=== PATIENT | female | born 1990 | race American Indian/Alaskan Native ===

== ENCOUNTER 2017-08-07 14:50 | Emergency (ER) | payer SELFPAY ==
[2017-08-07 14:58] VITALS: BP 118/78
--- NOTE | 2017-08-07 15:18 | Emergency Department Report ---
Chief Complaint: Eye Problems Stated Complaint: RED WATERY EYES - HPI History of Present Illness: 27-year-old female presents with bilateral eye redness and watering. She wears contacts. - Exam Vital Signs: Vital Signs 08/07/17 14:54 Temperature 98.4 F Pulse Rate 89 Respiratory 16 Rate Blood Pressure 118/78 O2 Sat by Pulse 98 Oximetry MSE screening note: Focused history and physical exam performed. Due to findings the following was ordered: ED Disposition for MSE Condition: Stable
--- NOTE | 2017-08-07 15:58 | Emergency Department Report ---
[facility] Chief Complaint: Eye Problems Stated Complaint: RED WATERY EYES Time Seen by Provider: 08/07/17 15:51 Side: Bilateral Severity: moderate Symptoms: Yes Eye Redness, Yes Contact Lens Use (patient does wear contacts but does not have them in right now.), No Eye Itching, No Eye Pain, No Mucous Drainage, No Purulent Drainage, No Blurred Vision, No Preceding URI, No H/O Allergic Rhinitis, No Trauma, No Fever, No Headache Other History: 27-year-old female past medical history none presents with complaint of approximately 4-5 days of bilateral eye irritation and watery discharge. Patient denies any foreign body sensation denies any trauma to eyes denies anything in her eyes or spilling into her eyes. Patient denies fevers chills headache nausea vomiting. States she has had some photophobia. Patient is not wearing contact lenses at this time. ED Review of Systems ROS: Stated complaint: RED WATERY EYES Other details as noted in HPI Constitutional: denies: chills, fever Eyes: eye discharge. denies: eye pain, vision change ENT: denies: ear pain, throat pain Respiratory: denies: cough, shortness of breath, wheezing Cardiovascular: denies: chest pain, palpitations Endocrine: no symptoms reported Gastrointestinal: denies: abdominal pain, nausea, diarrhea Genitourinary: denies: urgency, dysuria, discharge Musculoskeletal: denies: back pain, joint swelling, arthralgia Skin: denies: rash, lesions Neurological: denies: headache, weakness, paresthesias Psychiatric: denies: anxiety, depression Hematological/Lymphatic: denies: easy bleeding, easy bruising ED Past Medical Hx - Past Medical History Previous Medical History?: No - Surgical History Past Surgical History?: No - Social History Smoking Status: Never Smoker Substance Use Type: Alcohol, Non Opiate Pain, Other - Medications Home Medications: Home Medications Medication Instructions Recorded Confirmed Last Taken Type Ciprofloxacin 0.3% (Nf) 1 drop OU QID #1 bottle 08/07/17 Unknown Rx [Ciprofloxacin OPTH] Ibuprofen [Motrin] 600 mg PO Q8H PRN #30 tablet 08/07/17 Unknown Rx Naphazoline HCl/Pheniramine 2 drops OP Q6H PRN #1 bottle 08/07/17 Unknown Rx [Naphcon-A Eye Drops] [facility] Exam - Exam General: Vital signs noted. No distress. Alert and acting appropriately. Eye Exam: Both Injection (bilateral conjunctival injection), Neither Chemosis, Neither Abnormal Pupil, Neither EOMI (extraocular movements intact bilaterally) , Neither Eye Foreign Body, Neither Lid Foreign Body, Neither Mucous Discharge, Neither Purulent Discharge, Neither Fluorescein Uptake, Neither Fluorescein Uptake (slit lamp), Neither Cell/Flare (slit lamp), Neither Corneal Edema, Neither Photophobia HEENT: No Nasal Congestion, No Pharyngeal Erythema Remainder of HEENT: Normal Lungs: Yes Clear Lung Sounds, Yes Good Air Exchange ED Course Vital Signs 08/07/17 14:54 Temperature 98.4 F Pulse Rate 89 Respiratory 16 Rate Blood Pressure 118/78 O2 Sat by Pulse 98 Oximetry ED Medical Decision Making - Medical Decision Making A/P: Conjunctivitis 1-fluoroquinolone drops. Will cover pseudomonas. 2-Motrin when necessary 3-Naphcon-A drops 4-follow-up with ophthalmology. Patient's visual acuity is intact bilaterally, 20/30 bilaterally 20/20 overall Critical care attestation.: If time is entered above; I have spent that time in minutes in the direct care of this critically ill patient, excluding procedure time. ED Disposition Clinical Impression: Conjunctivitis Qualifiers: Conjunctivitis type: acute Acute conjunctivitis type: bacterial Laterality: bilateral Qualified Code(s): H10.33 - Unspecified acute conjunctivitis, bilateral Disposition: TO HOME OR SELFCARE Is pt being admited?: No Does the pt Need Aspirin: No Condition: Stable Instructions: Conjunctivitis (ED) Prescriptions: Ciprofloxacin 0.3% (Nf) [Ciprofloxacin OPTH] 1 drop OU QID #1 bottle Ibuprofen [Motrin] 600 mg PO Q8H PRN #30 tablet PRN Reason: Pain Naphazoline HCl/Pheniramine [Naphcon-A Eye Drops] 2 drops OP Q6H PRN #1 bottle PRN Reason: Dry Eye(S) Referrals: ANKITA CASTELLON MD [Staff Physician] - 3-5 Days Forms: Work/School Release Form(ED) Time of Disposition: 15:59
== END 2017-08-07 16:07 | disposition home or self-care (01) ==
LOC: ED 14:50
DX: H10.33 Unspecified acute conjunctivitis, bilateral (principal)
CPT/HCPCS: 99283

== ENCOUNTER 2018-08-25 21:03 | Emergency (ER) | payer OTHER ==
--- NOTE | 2018-08-25 21:07 | Emergency Department Report ---
Blank Doc - Documentation Documentation: This is a 28-year-old female that presents with n/v. Denies any abdominal pain. This initial assessment diagnostic orders/clinical plan/treatment(s) is/are subject to change based on patient's health status, clinical progression and re- assessment by fellow clinical providers in the ED. Further treatment and workup at subsequent clinical providers discretion. Patient/guardians urged not to elope from ED s their condition may be serious if not clinically assessed and managed. Initial orders include: 1-Patient sent to [facility] for further evaluation and treatment 2- labs 3- UA
[2018-08-25 21:32] LABS: Basophils % (Auto) 0.3 % (0.0-1.8); Hematocrit 43.7 % (30.3-42.9); Hemoglobin 14.2 gm/dl (10.1-14.3); Lymphocytes # (Auto) 0.8 K/mm3 (1.2-5.4); Lymphocytes % (Auto) 6.1 % (13.4-35.0); Mean Corpuscular HGB Conc 32 % (30-34); Mean Corpuscular Volume 107 fl (79-97); Monocytes # (Auto) 0.5 K/mm3 (0.0-0.8); Monocytes % (Auto) 3.9 % (0.0-7.3); Platelet Count 248 K/mm3 (140-440); Red Blood Count 4.08 M/mm3 (3.65-5.03); Red Cell Distribution Width 15.5 % (13.2-15.2)
[2018-08-25 21:51] LABS: Alanine Aminotransferase 56 units/L (7-56); Albumin 4.7 g/dL (3.9-5); BUN/Creatinine Ratio 13; Blood Urea Nitrogen 8 mg/dL (7-17); Calcium 9.3 mg/dL (8.4-10.2); Hemolysis Index 13
[2018-08-25 22:33] VITALS: BP 116/77
[2018-08-25] MEDS ORDERED: NACL 0.9% 1000 ML 1,000 ML IV ONE ×2 (22:46→22:47)
[2018-08-25] MEDS ORDERED: ZOFRAN IV ONE (22:46)
[2018-08-25] MEDS ORDERED: PEPCID IV ONE (22:47)
[2018-08-25 23:12] LABS: Bacteria,Urine 1+ /HPF (Negative); Bilirubin,Urine NEG (Negative); Blood,Urine NEG (Negative); Color,Urine Yellow (Yellow); Hyaline Casts,Urine 4 /LPF; Urobilinogen,Urine < 2.0 mg/dL (<2.0)
--- NOTE | 2018-08-26 00:50 | Emergency Department Report ---
Vomiting/Diarrhea - [facility] Chief Complaint: Nausea/Vomiting/Diarrhea Stated Complaint: NASEA/EMESIS Time Seen by Provider: 08/25/18 21:05 Duration: Today Severity: severe Nausea/Vomiting Severity: Moderate Diarrhea Severity: None Pain Severity: None Symptoms: No Able to Tolerate Fluids, No Recent Unusual Foods, No Recent U ntreated Water ED Review of Systems ROS: Stated complaint: NASEA/EMESIS Other details as noted in HPI Comment: All other systems reviewed and negative ED Past Medical Hx - Past Medical History Previous Medical History?: No - Surgical History Past Surgical History?: No - Social History Smoking Status: Never Smoker Substance Use Type: None - Medications Home Medications: Home Medications Medication Instructions Recorded Confirmed Last Taken Type Ciprofloxacin 0.3% (Nf) 1 drop OU QID #1 bottle 08/07/17 Unknown Rx [Ciprofloxacin OPTH] Ibuprofen [Motrin] 600 mg PO Q8H PRN #30 tablet 08/07/17 Unknown Rx Naphazoline HCl/Pheniramine 2 drops OP Q6H PRN #1 bottle 08/07/17 Unknown Rx [Naphcon-A Eye Drops] Nitrofurantoin Monohyd/M-Cryst 100 mg PO BID #10 capsule 08/26/18 Unknown Rx [Macrobid 100 mg Capsule] Ondansetron [Zofran Odt] 4 mg PO Q8HR PRN #10 tab.rapdis 08/26/18 Unknown Rx Vomiting Diarrhea Exam - Exam General: Vital signs noted. No distress. Alert and acting appropriately. HEENT: No Pharyngeal Erythema, No Pharyngeal Exudates, No Moist Mucous Membranes, No Rhinorrhea, No Conjuctival Injection, No Frontal Tenderness, No Maxillary Tenderness Neck: No Adenopathy, No Rigidity Lungs: Yes Clear Lung Sounds, Yes Good Air Exchange, No Wheezes, No Stridor, No Cough, No Nasal Flaring, No Retractions, No Use of Accessory Muscles Heart exam: Regular: Yes, Murmur: No, Tachycardia: No Abdomen: Tenderness: No, Peritoneal Signs: No, Distention: No, Hyperactive Bowel sounds: No Skin exam: Rash: No, Edema: No, Normal turgor: Yes Neurologic: Alert and oriented, no deficits. Musculoskeletal: Unremarkable. ED Course Vital Signs 08/25/18 08/25/18 21:13 22:31 Temperature 98.4 F 98.6 F Pulse Rate 125 H 114 H Respiratory 18 18 Rate Blood Pressure 125/83 Blood Pressure 116/77 [Left] O2 Sat by Pulse 99 98 Oximetry ED Medical Decision Making - Lab Data Result diagrams: 08/25/18 21:16 08/25/18 21:16 Lab Results 08/25/18 08/25/18 08/25/18 Range/Units 21:16 21:16 21:16 WBC 14.0 H (4.5-11.0) K/mm3 RBC 4.08 (3.65-5.03) M/mm3 Hgb 14.2 (10.1-14.3) gm/dl Hct 43.7 H (30.3-42.9) % MCV 107 H (79-97) fl MCH 35 H (28-32) pg MCHC 32 (30-34) % RDW 15.5 H (13.2-15.2) % Plt Count 248 (140-440) K/mm3 Lymph % (Auto) 6.1 L (13.4-35.0) % [place] % (Auto) 3.9 (0.0-7.3) % Eos % (Auto) 0.0 (0.0-4.3) % Baso % (Auto) 0.3 (0.0-1.8) % Lymph # 0.8 L (1.2-5.4) K/mm3 [place] # 0.5 (0.0-0.8) K/mm3 Eos # 0.0 (0.0-0.4) K/mm3 Baso # 0.0 (0.0-0.1) K/mm3 Seg Neutrophils % 89.7 H (40.0-70.0) % Seg Neutrophils # 12.5 H (1.8-7.7) K/mm3 Sodium 141 (137-145) mmol/L Potassium 4.4 (3.6-5.0) mmol/L Chloride 96.0 L (98-107) mmol/L Carbon Dioxide 10 L (22-30) mmol/L Anion Gap 39 mmol/L BUN 8 (7-17) mg/dL Creatinine 0.6 L (0.7-1.2) mg/dL Estimated GFR > 60 ml/min BUN/Creatinine Ratio 13 % Glucose 47 L (65-100) mg/dL Calcium 9.3 (8.4-10.2) mg/dL Total Bilirubin 0.50 (0.1-1.2) mg/dL AST 92 H (5-40) units/L ALT 56 (7-56) units/L Alkaline Phosphatase 106 (35-129) units/L Total Protein 8.1 (6.3-8.2) g/dL Albumin 4.7 (3.9-5) g/dL Albumin/Globulin Ratio 1.4 % Lipase 10 L (13-60) units/L HCG, Qual Negative (Negative) Urine Color (Yellow) Urine Turbidity (Clear) Urine pH (5.0-7.0) Ur Specific [place] (1.003-1.030) Urine Protein (Negative) mg/dL Urine Glucose (UA) (Negative) mg/dL Urine Ketones (Negative) mg/dL Urine Blood (Negative) Urine Nitrite (Negative) Urine Bilirubin (Negative) Urine Urobilinogen (<2.0) mg/dL Ur Leukocyte Esterase (Negative) Urine WBC (Auto) (0.0-6.0) /HPF Urine RBC (Auto) (0.0-6.0) /HPF U Epithel Cells (Auto) (0-13.0) /HPF Urine Bacteria (Auto) (Negative) /HPF Hyaline Casts /LPF 08/25/18 Range/Units 22:50 WBC (4.5-11.0) K/mm3 RBC (3.65-5.03) M/mm3 Hgb (10.1-14.3) gm/dl Hct (30.3-42.9) % MCV (79-97) fl MCH (28-32) pg MCHC (30-34) % RDW (13.2-15.2) % Plt Count (140-440) K/mm3 Lymph % (Auto) (13.4-35.0) % [place] % (Auto) (0.0-7.3) % Eos % (Auto) (0.0-4.3) % Baso % (Auto) (0.0-1.8) % Lymph # (1.2-5.4) K/mm3 [place] # (0.0-0.8) K/mm3 Eos # (0.0-0.4) K/mm3 Baso # (0.0-0.1) K/mm3 Seg Neutrophils % (40.0-70.0) % Seg Neutrophils # (1.8-7.7) K/mm3 Sodium (137-145) mmol/L Potassium (3.6-5.0) mmol/L Chloride (98-107) mmol/L Carbon Dioxide (22-30) mmol/L Anion Gap mmol/L BUN (7-17) mg/dL Creatinine (0.7-1.2) mg/dL Estimated GFR ml/min BUN/Creatinine Ratio % Glucose (65-100) mg/dL Calcium (8.4-10.2) mg/dL Total Bilirubin (0.1-1.2) mg/dL AST (5-40) units/L ALT (7-56) units/L Alkaline Phosphatase (35-129) units/L Total Protein (6.3-8.2) g/dL Albumin (3.9-5) g/dL Albumin/Globulin Ratio % Lipase (13-60) units/L HCG, Qual (Negative) Urine Color Yellow (Yellow) Urine Turbidity Slightly-cloudy (Clear) Urine pH 5.0 (5.0-7.0) Ur Specific [place] 1.018 (1.003-1.030) Urine Protein 100 mg/dl (Negative) mg/dL Urine Glucose (UA) Neg (Negative) mg/dL Urine Ketones 80 (Negative) mg/dL Urine Blood Neg (Negative) Urine Nitrite Neg (Negative) Urine Bilirubin Neg (Negative) Urine Urobilinogen < 2.0 (<2.0) mg/dL Ur Leukocyte Esterase Mod (Negative) Urine WBC (Auto) 12.0 H (0.0-6.0) /HPF Urine RBC (Auto) 6.0 (0.0-6.0) /HPF U Epithel Cells (Auto) 4.0 (0-13.0) /HPF Urine Bacteria (Auto) 1+ (Negative) /HPF Hyaline Casts 4 /LPF - Medical Decision Making Patient was hydrated and her nausea was controlled with Zofran. Patient does have evidence of a mild urinary tract infection will be treated. Patient discharged home. Critical care attestation.: If time is entered above; I have spent that time in minutes in the direct care of this critically ill patient, excluding procedure time. ED Disposition Clinical Impression: Dehydration Gastritis Qualifiers: Gastritis type: unspecified gastritis Chronicity: acute Gastritis bleeding: presence of bleeding unspecified Qualified Code(s): K29.00 - Acute gastritis without bleeding Nausea & vomiting Qualifiers: Vomiting type: unspecified Vomiting Intractability: non-intractable Qualified Code(s): R11.2 - Nausea with vomiting, unspecified UTI (urinary tract infection) Qualifiers: Urinary tract infection type: site unspecified Hematuria presence: without hematuria Qualified Code(s): N39.0 - Urinary tract infection, site not specified Disposition: TO HOME OR SELFCARE Is pt being admited?: No Does the pt Need Aspirin: No Condition: Stable Instructions: Dehydration (ED), Urinary Tract Infection in Women (ED), Acute Nausea and Vomiting (ED) Referrals: LUIS SHARIF MD [Primary Care Provider] - 3-5 Days Time of Disposition: 00:49
== END 2018-08-26 01:10 | disposition home or self-care (01) ==
LOC: ED 21:03
DX: K29.00 Acute gastritis without bleeding (principal); N39.0 Urinary tract infection, site not specified; E86.0 Dehydration
CPT/HCPCS: 36415; 80053; 81001; 83690; 84703; 85025; 96361; 96374; 96375; 99283; J2405; J7030

== ENCOUNTER 2018-10-21 08:03 | Emergency (ER) | payer OTHER ==
[2018-10-21] MEDS ORDERED: NACL 0.9% 1000 ML 1,000 ML IV ONE (08:10)
[2018-10-21 08:29] VITALS: BP 131/96
[2018-10-21 08:40] LABS: Hematocrit 45.6 % (30.3-42.9); Hemoglobin 15.4 gm/dl (10.1-14.3); Mean Corpuscular HGB Conc 34 % (30-34); Mean Corpuscular Volume 105 fl (79-97); Platelet Count 211 K/mm3 (140-440); Red Blood Count 4.36 M/mm3 (3.65-5.03); Red Cell Distribution Width 15.1 % (13.2-15.2)
[2018-10-21 08:43] LABS: Basophils % (Auto) 0.4 % (0.0-1.8); Eosinophils % (Auto) 1.1 % (0.0-4.3); Lymphocytes # (Auto) 0.8 K/mm3 (1.2-5.4); Lymphocytes % (Auto) 18.5 % (13.4-35.0); Monocytes # (Auto) 0.5 K/mm3 (0.0-0.8); Monocytes % (Auto) 11.1 % (0.0-7.3)
[2018-10-21 08:55] LABS: Alanine Aminotransferase 89 units/L (7-56); Albumin 4.5 g/dL (3.9-5); BUN/Creatinine Ratio 13; Blood Urea Nitrogen 5 mg/dL (7-17); Calcium 9.2 mg/dL (8.4-10.2); Hemolysis Index 9
--- NOTE | 2018-10-21 10:37 | Emergency Department Report ---
HPI - General Chief Complaint: Abdominal Pain Time Seen by Provider: 10/21/18 10:21 - HPI HPI: 28-year-old female presents to the emergency department with a complaint of decreased appetite, weight loss, concerns for dehydration. She als o has some mild intermittent abdominal pain but says that she thinks it's due to hunger. Sometimes she is hungry but says that when she tries to eat she either gets nauseous and throws up or gets a bad taste in the back of her mouth and can't make herself swallow the food. She says that she has no problem drinking water or certain fluids. She denies any past medical history. She was here in August and says that she was being treated for a bladder infection at that time but denies any current dysuria, vaginal bleeding or discharge. she has not taken anything for her symptoms prior to arrival. No primary care physician. The patient says that she does drink alcohol on the weekends, but denies any illicit drug use. No recent travel or sick contacts at home. ED Past Medical Hx - Past Medical History Previous Medical History?: No - Surgical History Past Surgical History?: No - Social History Smoking Status: Never Smoker Substance Use Type: None - Medications Home Medications: Home Medications Medication Instructions Recorded Confirmed Last Taken Type Ciprofloxacin 0.3% (Nf) 1 drop OU QID #1 bottle 08/07/17 Unknown Rx [Ciprofloxacin OPTH] Ibuprofen [Motrin] 600 mg PO Q8H PRN #30 tablet 08/07/17 Unknown Rx Naphazoline HCl/Pheniramine 2 drops OP Q6H PRN #1 bottle 08/07/17 Unknown Rx [Naphcon-A Eye Drops] Nitrofurantoin Monohyd/M-Cryst 100 mg PO BID #10 capsule 08/26/18 Unknown Rx [Macrobid 100 mg Capsule] Ondansetron [Zofran Odt] 4 mg PO Q8HR PRN #10 tab.rapdis 08/26/18 Unknown Rx ED Review of Systems ROS: Stated complaint: LOSS OF APPETITE/DEHYDRATION Other details as noted in HPI Comment: All other systems reviewed and negative Constitutional: denies: chills, fever Eyes: denies: eye pain, vision change ENT: denies: ear pain, throat pain Respiratory: denies: cough, shortness of breath Cardiovascular: denies: chest pain, palpitations Endocrine: unexplained weight loss Gastrointestinal: abdominal pain. denies: diarrhea Genitourinary: denies: dysuria, discharge Musculoskeletal: denies: back pain, arthralgia Skin: denies: rash, lesions Neurological: denies: headache, weakness Physical Exam - Physical Exam Vital Signs: Vital Signs 10/21/18 08:28 Temperature 98.1 F Pulse Rate 104 H Respiratory 18 Rate Blood Pressure 131/96 O2 Sat by Pulse 100 Oximetry Physical Exam: GENERAL: The patient is well-developed well-nourished. HEENT: Normocephalic. Atraumatic. Patient has moist mucous membranes. EYES: Extraocular motions are intact. Pupils are equal and reactive to light bilaterally. NECK: Supple. Trachea is midline. CHEST/LUNGS: Clear to auscultation. There is no respiratory distress noted. HEART/CARDIOVASCULAR: Regular. There is no tachycardia. There is no obvious murmur. ABDOMEN: Abdomen is soft, nontender. Patient has normal bowel sounds. There is no abdominal distention. SKIN: Skin is warm and dry. NEURO: The patient is awake, alert, and oriented. The patient is cooperative. The patient has no focal neurologic deficits. The patient has normal speech. MUSCULOSKELETAL: There is no tenderness or deformity. There is no evidence of acute injury. ED Course Vital Signs 10/21/18 08:28 Temperature 98.1 F Pulse Rate 104 H Respiratory 18 Rate Blood Pressure 131/96 O2 Sat by Pulse 100 Oximetry ED Medical Decision Making - Lab Data Result diagrams: 10/21/18 08:29 10/21/18 08:29 - Medical Decision Making The patient is concerned about any further lab or imaging testing, or further evaluation of her elevated liver enzymes, secondary to a lack of insurance and concern for the cost. I had a lengthy discussion with her regarding the concern that I am unable to make sure that there is no dangerous intra-abdominal pathology or conditions without further evaluation, including an ultrasound. We discussed a differential that could include moderate to heavy alcohol use, gallstones, but also could include malignancy, cholecystitis, ch oledocholithiasis, among other conditions. She understands that by leaving without further evaluation, the patient could have worsening of her lab values, worsening of her symptoms, or potentially permanent organ damage or disability. She will still be given a referral for primary care and gastroenterology. She understands that she is welcome to come back at any time if she changes her mind about further evaluation, or with any other concerns or acute distress. Patient originally presents with complaint of decreased appetite, decreased oral intake of food, and some intermittent abdominal pains. Labs are mostly unremarkable except for an AST of 200 and an ALT of almost 100. No elevation in alkaline phosphatase or bilirubin. On examination she does not have any significant abdominal tenderness to palpation. The patient does admit to heavy drinking on the weekends but not daily drinker or alcohol dependence. As stated above, I recommended for an ultrasound to be done to evaluate the liver for the elevated liver enzymes. The patient is concerned about cost without insurance and would not agree to have this done today. Vital signs stable throughout her ED course. Since the patient is of sound mind and has normal decision-making capacity, the patient will be discharged home with some referrals but understands the risks of leaving without further evaluation and that she should return to the ER with any worsening of her symptoms or with any acute distress. - Differential Diagnosis hepatitis, cholelithiasis, choledocholithiasis, cholecystitis Critical Care Time: No Critical care attestation.: If time is entered above; I have spent that time in minutes in the direct care of this critically ill patient, excluding procedure time. ED Disposition Clinical Impression: Intermittent abdominal pain, Decreased appetite, Elevated liver enzymes Disposition: DC-07 LEFT AGAINST MED ADVICE Is pt being admited?: No Condition: Stable Instructions: Abdominal Pain (ED) Additional Instructions: Please follow up with a primary care physician. I am giving you a referral for [facility] regarding your intermittent abdominal pains and elevated liver enzymes. Return to the emergency department if you change your mind about further evaluation of these symptoms and abnormal labs, or with any acute distress. I recommend avoiding any alcohol use. Avoid Tylenol. Referrals: [facility] [Provider Group] - BILL [facility] [Outside] - BILL Forms: Work/School Release Form(ED) Time of Disposition: 10:37
== END 2018-10-21 10:52 | disposition left against medical advice (07) ==
LOC: ED 08:03 → EEVIPCON 08:03 → ED 10:52
DX: R10.9 Unspecified abdominal pain (principal); R63.0 Anorexia; R74.8 Abnormal levels of other serum enzymes
CPT/HCPCS: 36415; 80053; 84703; 85025; 99283

== ENCOUNTER 2018-10-22 13:08 | Inpatient (IN) | payer SELFPAY ==
[2018-10-22 13:43] LABS: Hematocrit 50.1 % (30.3-42.9); Hemoglobin 15.8 gm/dl (10.1-14.3); Mean Corpuscular HGB Conc 32 % (30-34); Platelet Count 221 K/mm3 (140-440); Red Blood Count 4.54 M/mm3 (3.65-5.03); Red Cell Distribution Width 15.8 % (13.2-15.2)
[2018-10-22 13:52] LABS: Mean Corpuscular Volume 110 fl (79-97)
[2018-10-22 14:00] LABS: Albumin 4.7 g/dL (3.9-5); Bilirubin,Direct 0.7 mg/dL (0-0.2); Calcium 9.9 mg/dL (8.4-10.2)
[2018-10-22] MEDS ORDERED: NACL 0.9% 1000 ML IV ONE (15:29)
[2018-10-22] MEDS ORDERED: PEPCID IV ONE (15:30)
[2018-10-22] MEDS ORDERED: ZOFRAN IV ONE (15:30)
[2018-10-22] MEDS: FLAGYL 500 MG/100 ML 500 MG/100 ML BAG IV SCH (17:11)
[2018-10-22 17:26] LABS: Basophils % (Manual) 0 % (0.0-1.8); Eosinophils % (Manual) 0 % (0.0-4.3); Total Cells Counted 100
[2018-10-22 17:27] LABS: Anisocytosis 1+; Macrocytosis 1+; Platelet Estimate Consistent w Auto
--- NOTE | 2018-10-22 17:30 | Ultrasound Report ---
PROCEDURE: US ABDOMEN LIMITED TECHNIQUE: Grayscale and color-flow imaging of the right upper quadrant was performed. HISTORY: RUQ/Epigastric pain COMPARISONS: None FINDINGS: Pancreas: Not well visualized due to artifact. Upper abdominal aorta: Normal caliber (1.7 cm). Right kidney: Measures 10.2 cm in the maximal craniocaudal dimension with cortical thickness measurem ent of 12 mm. There is no demonstration of hydronephrosis, renal calculi or renal mass. Liver: Demonstrates coarsened echotexture with increased echogenicity. This can be seen with hepatoce llular disease. Gallbladder: Moderately distended and without evidence of gallstones or gallbladder wall thickening ( 2 mm). There is no demonstration of pericholecystic fluid. Common bile duct: Normal caliber (3 mm). No free fluid is demonstrated in the right upper quadrant. IMPRESSION: 1. Coarsened echotexture of the liver with increased echogenicity. This can be seen with hepatocellul ar disease. Correlation with clinical history and physical exam will be helpful. If further imaging i s required, CT or MRI may be helpful. 2. The pancreas is not well visualized due to artifact. 3. Otherwise unremarkable right upper quadrant abdomen ultrasound. This document is electronically signed by Akua Rojas MD., October 22 2018 05:28:34 PM ET
--- NOTE | 2018-10-22 17:49 | Emergency Department Report ---
ED Abdominal Pain HPI - General Chief Complaint: Nausea/Vomiting/Diarrhea Stated Complaint: ABD PAIN/VOMITTING/NAUSEA/LIGHTHEADED Time Seen by Provider: 10/22/18 15:28 Source: patient Mode of arrival: Ambulatory Limitations: No Limitations - History of Present Illness Initial Comments: Patient is a 28-year-old [place]er female who is presenting with epigastric discomfort with nausea vomiting. Patient was here last night was seen. Patient has some mild elevation of her LFTs at that time with some nonreproducible abdominal discomfort. Patient was to have ultrasound performed yesterday however she stated she didn't have insurance and she declined ultrasound. Patient is abdominal discomfort was minimal and her white count was within normal limits and she was discharged home. Patient returned stating that she's had multiple episodes nausea vomiting with lightheadedness since. She states she still has some epigastric abdominal discomfort that is 8 out of 10 in severity. Severity scale (0 -10): 8 - Related Data Previous Rx's Medication Instructions Recorded Last Taken Type Ciprofloxacin 0.3% (Nf) 1 drop OU QID #1 bottle 08/07/17 Unknown Rx [Ciprofloxacin OPTH] Ibuprofen [Motrin] 600 mg PO Q8H PRN #30 tablet 08/07/17 Unknown Rx Naphazoline HCl/Pheniramine 2 drops OP Q6H PRN #1 bottle 08/07/17 Unknown Rx [Naphcon-A Eye Drops] Nitrofurantoin Monohyd/M-Cryst 100 mg PO BID #10 capsule 08/26/18 Unknown Rx [Macrobid 100 mg Capsule] Ondansetron [Zofran Odt] 4 mg PO Q8HR PRN #10 tab.rapdis 08/26/18 Unknown Rx Allergies Allergy/AdvReac Type Severity Reaction Status Date / Time No Known Allergies Allergy Verified 10/21/18 10:52 ED Review of Systems ROS: Stated complaint: ABD PAIN/VOMITTING/NAUSEA/LIGHTHEADED Other details as noted in HPI Comment: All other systems reviewed and negative ED Past Medical Hx - Past Medical History Previous Medical History?: No - Surgical History Past Surgical History?: No - Social History Smoking Status: Never Smoker Substance Use Type: Alcohol - Medications Home Medications: Home Medications Medication Instructions Recorded Confirmed Last Taken Type Ciprofloxacin 0.3% (Nf) 1 drop OU QID #1 bottle 08/07/17 Unknown Rx [Ciprofloxacin OPTH] Ibuprofen [Motrin] 600 mg PO Q8H PRN #30 tablet 08/07/17 Unknown Rx Naphazoline HCl/Pheniramine 2 drops OP Q6H PRN #1 bottle 08/07/17 Unknown Rx [Naphcon-A Eye Drops] Nitrofurantoin Monohyd/M-Cryst 100 mg PO BID #10 capsule 08/26/18 Unknown Rx [Macrobid 100 mg Capsule] Ondansetron [Zofran Odt] 4 mg PO Q8HR PRN #10 tab.rapdis 08/26/18 Unknown Rx ED Physical Exam - General Limitations: No Limitations General appearance: alert, in no apparent distress - Head Head exam: Present: atraumatic, normocephalic - Eye Eye exam: Present: normal appearance, PERRL, EOMI - ENT ENT exam: Present: mucous membranes dry - Neck Neck exam: Present: normal inspection - Respiratory Respiratory exam: Present: normal lung sounds bilaterally. Absent: respiratory distress, wheezes, rales, rhonchi - Cardiovascular Cardiovascular Exam: Present: normal rhythm, tachycardia, normal heart sounds. Absent: systolic murmur, diastolic murmur, rubs, gallop - GI/Abdominal GI/Abdominal exam: Present: soft, tenderness (epigastric), normal bowel sounds. Absent: distended, guarding, rebound, rigid - Extremities Exam Extremities exam: Present: normal inspection - Back Exam Back exam: Present: normal inspection - Neurological Exam Neurological exam: Present: alert, oriented X3 - Psychiatric Psychiatric exam: Present: normal affect, normal mood - Skin Skin exam: Present: warm, dry, intact, normal color. Absent: rash ED Course Vital Signs 10/22/18 13:12 Temperature 97.9 F Pulse Rate 138 H Respiratory 22 Rate Blood Pressure 109/66 O2 Sat by Pulse 98 Oximetry ED Medical Decision Making - Lab Data Result diagrams: 10/22/18 13:37 10/22/18 13:37 Laboratory Results - last 72 hr 10/22/18 10/22/18 10/22/18 13:37 13:37 15:59 WBC 21.3 H RBC 4.54 Hgb 15.8 H Hct 50.1 H MCV 110 H MCH 35 H MCHC 32 RDW 15.8 H Plt Count 221 Add Manual Diff Complete Total Counted 100 Seg Neutrophils % Spare Parts Clerk Seg Neuts % (Manual) 96.0 H Band Neutrophils % 0 Lymphocytes % (Manual) 2.0 L Reactive Lymphs % (Man) 0 Monocytes % (Manual) 2.0 Eosinophils % (Manual) 0 Basophils % (Manual) 0 Metamyelocytes % 0 Myelocytes % 0 Promyelocytes % 0 Blast Cells % 0 Nucleated RBC % Not Reportable Seg Neutrophils # Man 20.4 H Band Neutrophils # 0.0 Lymphocytes # (Manual) 0.4 L Abs React Lymphs (Man) 0.0 Monocytes # (Manual) 0.4 Eosinophils # (Manual) 0.0 Basophils # (Manual) 0.0 Metamyelocytes # 0.0 Myelocytes # 0.0 Promyelocytes # 0.0 Blast Cells # 0.0 WBC Morphology Not Reportable Hypersegmented Neuts Not Reportable Hyposegmented Neuts Not Reportable Hypogranular Neuts Not Reportable Smudge Cells Not Reportable Toxic Granulation Not Reportable Toxic Vacuolation Not Reportable Dohle Bodies Not Reportable Pelger-Huet Anomaly Not Reportable Aldair Rods Not Reportable Platelet Estimate Consistent w auto Clumped Platelets Not Reportable Plt Clumps, EDTA Not Reportable Large Platelets Not Reportable Giant Platelets Not Reportable Platelet Satelliting Not Reportable Plt Morphology Comment Not Reportable RBC Morphology Not Reportable Dimorphic RBCs Not Reportable Polychromasia Not Reportable Hypochromasia Not Reportable Poikilocytosis Not Reportable Anisocytosis 1+ Microcytosis Not Reportable Macrocytosis 1+ Spherocytes Not Reportable Pappenheimer Bodies Not Reportable Sickle Cells Not Reportable Target Cells Not Reportable Tear Drop Cells Not Reportable Ovalocytes Not Reportable Helmet Cells Not Reportable [place] Bodies Not Reportable [place] Rings Not Reportable Mari Cells Not Reportable Bite Cells Not Reportable Crenated Cell Not Reportable Elliptocytes Not Reportable Acanthocytes (Spur) Not Reportable Rouleaux Not Reportable Hemoglobin C Crystals Not Reportable Schistocytes Not Reportable Malaria parasites Not Reportable Samy Bodies Not Reportable Hem Pathologist Commnt No Sodium 146 H Potassium 4.6 Chloride 89.7 L Carbon Dioxide 10 L D Anion Gap 51 BUN 12 Creatinine 1.3 H D Estimated GFR 60 BUN/Creatinine Ratio 9 Glucose 51 L Lactic Acid 18.90 H* Calcium 9.9 Total Bilirubin 0.90 Direct Bilirubin 0.7 H Indirect Bilirubin 0.2 AST 569 H ALT 185 H Alkaline Phosphatase 160 H Total Protein 8.4 H Albumin 4.7 Albumin/Globulin Ratio 1.3 Lipase 11 L Plasma/Serum Alcohol 10/22/18 15:59 WBC RBC Hgb Hct MCV MCH MCHC RDW Plt Count Add Manual Diff Total Counted Seg Neutrophils % Seg Neuts % (Manual) Band Neutrophils % Lymphocytes % (Manual) Reactive Lymphs % (Man) Monocytes % (Manual) Eosinophils % (Manual) Basophils % (Manual) Metamyelocytes % Myelocytes % Promyelocytes % Blast Cells % Nucleated RBC % Seg Neutrophils # Man Band Neutrophils # Lymphocytes # (Manual) Abs React Lymphs (Man) Monocytes # (Manual) Eosinophils # (Manual) Basophils # (Manual) Metamyelocytes # Myelocytes # Promyelocytes # Blast Cells # WBC Morphology Hypersegmented Neuts Hyposegmented Neuts Hypogranular Neuts Smudge Cells Toxic Granulation Toxic Vacuolation Dohle Bodies Pelger-Huet Anomaly Aldair Rods Platelet Estimate Clumped Platelets Plt Clumps, EDTA Large Platelets Giant Platelets Platelet Satelliting Plt Morphology Comment RBC Morphology Dimorphic RBCs Polychromasia Hypochromasia Poikilocytosis Anisocytosis Microcytosis Macrocytosis Spherocytes Pappenheimer Bodies Sickle Cells Target Cells Tear Drop Cells Ovalocytes Helmet Cells [place]ma[place] Bodies [place] Rings Chalmers Cells Bite Cells Crenated Cell Elliptocytes Acanthocytes (Spur) Rouleaux Hemoglobin C Crystals Schistocytes Malaria parasites Samy Bodies Hem Pathologist Commnt Sodium Potassium Chloride Carbon Dioxide Anion Gap BUN Creatinine Estimated GFR BUN/Creatinine Ratio Glucose Lactic Acid Calcium Total Bilirubin Direct Bilirubin Indirect Bilirubin AST ALT Alkaline Phosphatase Total Protein Albumin Albumin/Globulin Ratio Lipase Plasma/Serum Alcohol < 0.01 The patient's white blood cell count increased to 21 from 4.6 yesterday. Patient's bicarbonate decreased to 10 from 26 yesterday. Patient's LFTs have risen as well. - Radiology Data [facility] [address] [place] [address] Ultrasound Report Signed Patient: RENETTA JIN MR#: [id number] : 1990 Acct:[id number] Age/Sex: 28 / F ADM Date: 10/22/18 Loc: ED Attending Dr: Ordering Physician: RICHARD KNIGHT MD Date of Service: 10/22/18 Procedure(s): US abdomen limited Accession Number(s): [id number] cc: RICHARD KNIGHT MD PROCEDURE: US ABDOMEN LIMITED TECHNIQUE: Grayscale and color-flow imaging of the right upper quadrant was performed. HISTORY: RUQ/Epigastric pain COMPARISONS: None FINDINGS: Pancreas: Not well visualized due to artifact. Upper abdominal aorta: Normal caliber (1.7 cm). Right kidney: Measures 10.2 cm in the maximal craniocaudal dimension with cortical thickness measurement of 12 mm. There is no demonstration of hydronephrosis, renal calculi or renal mass. Liver: Demonstrates coarsened echotexture with increased echogenicity. This can be seen with hepatocellular disease. Gallbladder: Moderately distended and without evidence of gallstones or gallbladder wall thickening (2 mm). There is no demonstration of pericholecystic fluid. Common bile duct: Normal caliber (3 mm). No free fluid is demonstrated in the right upper quadrant. IMPRESSION: 1. Coarsened echotexture of the liver with increased echogenicity. This can be seen with hepatocellular disease. Correlation with clinical history and physical exam will be helpful. If further imaging is required, CT or MRI may be helpful. 2. The pancreas is not well visualized due to artifact. 3. Otherwise unremarkable right upper quadrant abdomen ultrasound. This document is electronically signed by Akua Rojas MD., October 22 2018 05:28:34 PM ET Transcribed By: ED Dictated By: AKUA ROJAS MD Electronically Authenticated By: AKUA ROJAS MD Signed Date/Time: 10/22/181729 DD/ 06 TD/TT: 10/22/181706 - Medical Decision Making Patient is a 28-year-old female who's had dramatic change in her laboratory studies from her previous visit yesterday. Patient's clinical p resentation has changed as well. Patient now having nausea vomiting which she did not have initially. Patient was tachycardic at With elevated white blood cell count. Patient was started on sepsis protocol. Patient's blood pressure remained within normal limits. Patient doesn't have abdominal pain was started on cefepime and Flagyl. Patient was hydrated and given nausea relief which did improve her symptoms. Patient's ultrasound shows that she does have some inflammatory changes to the liver. Patient is admitted to the hospitalist service at this time. Hepatic panel in order as well. When asked about the patient's drinking yesterday she stated that she is a social drinker on weekends however she admitted to me that she drinks several drinks of hard liquor daily. Patient states she'll drink until she'll follow sleep. Patient's hepatitis is likely alcohol-induced however again a hepatitis panel has been ordered. Critical Care Time: Yes (30) Critical care attestation.: If time is entered above; I have spent that time in minutes in the direct care of this critically ill patient, excluding procedure time. ED Disposition Clinical Impression: Dehydration, Acute hepatitis Disposition: OP ADMIT IP TO THIS HOSP Is pt being admited?: Yes Does the pt Need Aspirin: No Condition: Stable Referrals: LUIS SHARIF MD [Primary Care Provider] - 3-5 Days
[2018-10-22] MEDS ORDERED: D50W (25GM) Syringe IV ONE ×2 (17:56→19:29)
[2018-10-22] MEDS ORDERED: NACL 0.9% 1000 ML 1,000 ML IV ONE (17:58)
[2018-10-22] MEDS ORDERED: DILAUDID IV PRN (18:43)
[2018-10-22] MEDS ORDERED: PERCOCET 5/325 PO PRN (18:43)
[2018-10-22] MEDS ORDERED: ZOFRAN IV PRN (18:43)
[2018-10-22] MEDS ORDERED: SODIUM CHLORIDE FLUSH SYRINGE 10 ML IV PRN (18:43)
[2018-10-22] MEDS ORDERED: TYLENOL PO PRN (18:43)
--- NOTE | 2018-10-22 18:43 | History and Physical Report ---
History of Present Illness Date of examination: 10/22/18 Date of admission: 10/22/2018 Chief complaint: Abdominal pain nausea vomiting since last night History of present illness: 30-year-old -[place] female with no significant past medical history comes in for abdominal pain since yesterday. Patient was in the emergency room last night--- was evaluated and was sent home. Patient refused abdominal ultrasound.. After going home patient started having persistent nausea vomiting since 1 AM. Not able to hold anything. No diarrhea. Abdominal pain is about 6-7 on a scale of 1-10. Sharp in nature and intermittent. Patient feels weak and dehydrated secondary to wanting. No fever or chills. Patient drinks about 2 to 3 shots of tequila every day for the past 5 years. Patient wants to quit alcohol but unable to do. Patient feels that this is a precipitating factor and may stop alcohol from now on. Past Medical History Previous Medical History?: No Surgical History Past Surgical History?: No Social History Smoking Status: Never Smoker Substance Use Type: Alcohol--tequila 2-3 shots every day for the past 5 years Family history Htn Medications Home Medications: Home Medications Medication Instructions Recorded Confirmed Last Taken Type Ciprofloxacin 0.3% (Nf) 1 drop OU QID #1 bottle 08/07/17 Unknown Rx [Ciprofloxacin OPTH] Ibuprofen [Motrin] 600 mg PO Q8H PRN #30 tablet 08/07/17 Unknown Rx Naphazoline HCl/Pheniramine 2 drops OP Q6H PRN #1 bottle 08/07/17 Unknown Rx [Naphcon-A Eye Drops] Nitrofurantoin Monohyd/M-Cryst 100 mg PO BID #10 capsule 08/26/18 Unknown Rx [Macrobid 100 mg Capsule] Ondansetron [Zofran Odt] 4 mg PO Q8HR PRN #10 tab.rapdis 08/26/18 Unknown Rx Review of Systems ROS: Stated complaint: ABD PAIN/VOMITTING/NAUSEA/LIGHTHEADED Other details as noted in HPI Feels lightheaded and then dehydrated. Comment: All other systems reviewed and negative Medications and Allergies Allergies Allergy/AdvReac Type Severity Reaction Status Date / Time No Known Allergies Allergy Verified 10/21/18 10:52 Home Medications Medication Instructions Recorded Confirmed Last Taken Type No Known Home Medications [No 10/22/18 10/22/18 Unknown History Reported Home Medications] Active Meds: Active Medications Cefepime HCl (Maxipime/Ns 2 Gm/100 Ml) 2 gm in 100 mls @ 200 mls/hr IV Q8HR PARI; Protocol Metronidazole (Flagyl 500 Mg/100 Ml) 500 mg in 100 mls @ 100 mls/hr IV Q8HR PARI; Protocol Last Admin: 10/22/18 17:11 Dose: 100 mls/hr Documented by: Sodium Chloride (Nacl 0.9% 1000 Ml) 1,000 mls @ 999 mls/hr IV BOLUS ONE Stop: 10/22/18 18:58 Last Admin: 10/22/18 18:40 Dose: 999 mls/hr Documented by: Sodium Chloride (Nacl 0.9% 1000 Ml) 1,000 mls @ 100 mls/hr IV DIRECT PARI Exam - Physical Exam Narrative exam: Patient lying in bed comfortably - Constitutional Vitals: Temp Pulse Resp BP Pulse Ox 97.9 F 148 H 33 H 107/68 97 10/22/18 13:12 10/22/18 16:00 10/22/18 16:00 10/22/18 16:00 10/22/18 16:00 General appearance: Present: mild distress, well-nourished - EENT Eyes: Present: PERRL ENT: hearing intact, clear oral mucosa - Neck Neck: Present: supple, normal ROM - Respiratory Respiratory effort: normal Respiratory: bilateral: CTA - Cardiovascular Heart rate: 138 Rhythm: regular Heart Sounds: Present: S1 & S2. Absent: rub, click - Extremities Extremities: no ischemia, pulses intact, pulses symmetrical, No edema Peripheral Pulses: within normal limits - Abdominal General gastrointestinal: Present: soft, non-tender, non-distended, normal bowel sounds Female genitourinary: Present: normal - Integumentary Integumentary: Present: clear, warm, dry - Musculoskeletal Musculoskeletal: gait normal, strength equal bilaterally - Psychiatric Psychiatric: appropriate mood/affect, intact judgment & insight - Neurologic Neurologic: CNII-XII intact, moves all extremities - Allied Health Allied health notes reviewed: nursing, case management Results - Labs CBC & Chem 7: 10/22/18 13:37 10/22/18 13:37 Labs: Laboratory Last Values WBC 21.3 K/mm3 (4.5-11.0) H 10/22/18 13:37 RBC 4.54 M/mm3 (3.65-5.03) 10/22/18 13:37 Hgb 15.8 gm/dl (10.1-14.3) H 10/22/18 13:37 Hct 50.1 % (30.3-42.9) H 10/22/18 13:37 MCV 110 fl (79-97) H 10/22/18 13:37 MCH 35 pg (28-32) H 10/22/18 13:37 MCHC 32 % (30-34) 10/22/18 13:37 RDW 15.8 % (13.2-15.2) H 10/22/18 13:37 Plt Count 221 K/mm3 (140-440) 10/22/18 13:37 Add Manual Diff Complete 10/22/18 13:37 Total Counted 100 10/22/18 13:37 Seg Neutrophils % Bagel Maker 10/22/18 13:37 Seg Neuts % (Manual) 96.0 % (40.0-70.0) H 10/22/18 13:37 Band Neutrophils % 0 % 10/22/18 13:37 Lymphocytes % (Manual) 2.0 % (13.4-35.0) L 10/22/18 13:37 Reactive Lymphs % (Man) 0 % 10/22/18 13:37 Monocytes % (Manual) 2.0 % (0.0-7.3) 10/22/18 13:37 Eosinophils % (Manual) 0 % (0.0-4.3) 10/22/18 13:37 Basophils % (Manual) 0 % (0.0-1.8) 10/22/18 13:37 Metamyelocytes % 0 % 10/22/18 13:37 Myelocytes % 0 % 10/22/18 13:37 Promyelocytes % 0 % 10/22/18 13:37 Blast Cells % 0 % 10/22/18 13:37 Nucleated RBC % Not Reportable 10/22/18 13:37 Seg Neutrophils # Man 20.4 K/mm3 (1.8-7.7) H 10/22/18 13:37 Band Neutrophils # 0.0 K/mm3 10/22/18 13:37 Lymphocytes # (Manual) 0.4 K/mm3 (1.2-5.4) L 10/22/18 13:37 Abs React Lymphs (Man) 0.0 K/mm3 10/22/18 13:37 Monocytes # (Manual) 0.4 K/mm3 (0.0-0.8) 10/22/18 13:37 Eosinophils # (Manual) 0.0 K/mm3 (0.0-0.4) 10/22/18 13:37 Basophils # (Manual) 0.0 K/mm3 (0.0-0.1) 10/22/18 13:37 Metamyelocytes # 0.0 K/mm3 10/22/18 13:37 Myelocytes # 0.0 K/mm3 10/22/18 13:37 Promyelocytes # 0.0 K/mm3 10/22/18 13:37 Blast Cells # 0.0 K/mm3 10/22/18 13:37 WBC Morphology Not Reportable 10/22/18 13:37 Hypersegmented Neuts Not Reportable 10/22/18 13:37 Hyposegmented Neuts Not Reportable 10/22/18 13:37 Hypogranular Neuts Not Reportable 10/22/18 13:37 Smudge Cells Not Reportable 10/22/18 13:37 Toxic Granulation Not Reportable 10/22/18 13:37 Toxic Vacuolation Not Reportable 10/22/18 13:37 Dohle Bodies Not Reportable 10/22/18 13:37 Pelger-Huet Anomaly Not Reportable 10/22/18 13:37 Aldair Rods Not Reportable 10/22/18 13:37 Platelet Estimate Consistent w auto 10/22/18 13:37 Clumped Platelets Not Reportable 10/22/18 13:37 Plt Clumps, EDTA Not Reportable 10/22/18 13:37 Large Platelets Not Reportable 10/22/18 13:37 Giant Platelets Not Reportable 10/22/18 13:37 Platelet Satelliting Not Reportable 10/22/18 13:37 Plt Morphology Comment Not Reportable 10/22/18 13:37 RBC Morphology Not Reportable 10/22/18 13:37 Dimorphic RBCs Not Reportable 10/22/18 13:37 Polychromasia Not Reportable 10/22/18 13:37 Hypochromasia Not Reportable 10/22/18 13:37 Poikilocytosis Not Reportable 10/22/18 13:37 Anisocytosis 1+ 10/22/18 13:37 Microcytosis Not Reportable 10/22/18 13:37 Macrocytosis 1+ 10/22/18 13:37 Spherocytes Not Reportable 10/22/18 13:37 Pappenheimer Bodies Not Reportable 10/22/18 13:37 Sickle Cells Not Reportable 10/22/18 13:37 Target Cells Not Reportable 10/22/18 13:37 Tear Drop Cells Not Reportable 10/22/18 13:37 Ovalocytes Not Reportable 10/22/18 13:37 Helmet Cells Not Reportable 10/22/18 13:37 Ledezma-[place] Bodies Not Reportable 10/22/18 13:37 [place] Rings Not Reportable 10/22/18 13:37 Mari Cells Not Reportable 10/22/18 13:37 Bite Cells Not Reportable 10/22/18 13:37 Crenated Cell Not Reportable 10/22/18 13:37 Elliptocytes Not Reportable 10/22/18 13:37 Acanthocytes (Spur) Not Reportable 10/22/18 13:37 Rouleaux Not Reportable 10/22/18 13:37 Hemoglobin C Crystals Not Reportable 10/22/18 13:37 Schistocytes Not Reportable 10/22/18 13:37 Malaria parasites Not Reportable 10/22/18 13:37 Samy Bodies Not Reportable 10/22/18 13:37 Hem Pathologist Commnt No 10/22/18 13:37 Sodium 146 mmol/L (137-145) H 10/22/18 13:37 Potassium 4.6 mmol/L (3.6-5.0) 10/22/18 13:37 Chloride 89.7 mmol/L (98-107) L 10/22/18 13:37 Carbon Dioxide 10 mmol/L (22-30) L D 10/22/18 13:37 Anion Gap 51 mmol/L 10/22/18 13:37 BUN 12 mg/dL (7-17) 10/22/18 13:37 Creatinine 1.3 mg/dL (0.7-1.2) H D 10/22/18 13:37 Estimated GFR 60 ml/min 10/22/18 13:37 BUN/Creatinine Ratio 9 % 10/22/18 13:37 Glucose 51 mg/dL (65-100) L 10/22/18 13:37 Lactic Acid 18.90 mmol/L (0.7-2.0) H* 10/22/18 15:59 Calcium 9.9 mg/dL (8.4-10.2) 10/22/18 13:37 Total Bilirubin 0.90 mg/dL (0.1-1.2) 10/22/18 13:37 Direct Bilirubin 0.7 mg/dL (0-0.2) H 10/22/18 13:37 Indirect Bilirubin 0.2 mg/dL 10/22/18 13:37 AST 569 units/L (5-40) H 10/22/18 13:37 ALT 185 units/L (7-56) H 10/22/18 13:37 Alkaline Phosphatase 160 units/L (35-129) H 10/22/18 13:37 Total Protein 8.4 g/dL (6.3-8.2) H 10/22/18 13:37 Albumin 4.7 g/dL (3.9-5) 10/22/18 13:37 Albumin/Globulin Ratio 1.3 % 10/22/18 13:37 Lipase 11 units/L (13-60) L 10/22/18 13:37 Plasma/Serum Alcohol < 0.01 % (0-0.07) 10/22/18 15:59 Short CBC 10/22/18 Range/Units 13:37 WBC 21.3 H (4.5-11.0) K/mm3 Hgb 15.8 H (10.1-14.3) gm/dl Hct 50.1 H (30.3-42.9) % Plt Count 221 (140-440) K/mm3 BMP 10/22/18 13:37 Sodium 146 H Potassium 4.6 Chloride 89.7 L Carbon Dioxide 10 L D BUN 12 Creatinine 1.3 H D Glucose 51 L Calcium 9.9 Liver Function 10/22/18 Range/Units 13:37 Total Bilirubin 0.90 (0.1-1.2) mg/dL Direct Bilirubin 0.7 H (0-0.2) mg/dL AST 569 H (5-40) units/L ALT 185 H (7-56) units/L Alkaline Phosphatase 160 H (35-129) units/L Albumin 4.7 (3.9-5) g/dL - Imaging and Cardiology Imaging and Cardiology: Abdominal ultrasound IMPRESSION: 1. Coarsened echotexture of the liver with increased echogenicity. This can be seen with hepatocellular disease. Correlation with clinical history and physical exam will be helpful. If further imaging is required, CT or MRI may be helpful. 2. The pancreas is not well visualized due to artifact. 3. Otherwise unremarkable right upper quadrant abdomen ultrasound. This document is electronically signed by Akua Rojas MD., October 22 2018 05:28:34 PM ET Assessment and Plan Advance Directives: Yes (full code) VTE prophylaxis?: Chemical Plan of care discussed with patient/family: Yes - Patient Problems (1) SIRS (systemic inflammatory response syndrome) Current Visit: Yes Status: Acute Plan to address problem: Secondary to acute hepatitis IV ceftriaxone initiated IV fluids Serial liver enzymes (2) Acute hepatitis Current Visit: Yes Status: Acute Plan to address problem: Patient has alcoholic hepatitis. Patient's AST and ALT were 92 and 56 on 08/25/2018. AST and ALT are increased to 202 and 89 respectively yesterday. Today AST and ALT are 569 and 185 lipase was 11. Severe hepatitis secondary to alcohol poisoning. Patient may be underestimating the amount of alcohol she takes. Patient needs to be off alcohol. Hepatitis profile to be checked to make sure there is no hepatitis A, B, and C. GI consult requested IV fluids for now CIWA protocol initiated.. (3) Elevated lactic acid level Current Visit: Yes Status: Acute Plan to address problem: Secondary to persistent vomiting causing alcoholic ketoacidosis IV fluids for now Empiric antibiotics in the form of Rocephin (4) Leukocytosis Current Visit: Yes Status: Acute Plan to address problem: Probably demargination No source of infection Antibiotics initiated in the form of Rocephin No fever Urine pending (5) Dehydration Current Visit: Yes Status: Acute Plan to address problem: Patient severely dehydrated as manifested by high sodium levels h emoconcentration and increased creatinine levels. IV fluids for now (6) Elevated liver enzymes Current Visit: No Status: Acute Plan to address problem: Secondary to acute hepatitis Liver enzymes progressively increasing over the last 2 months from 92 to 202 to 569 AST ALT 56 ---89---185 (7) Acute hypernatremia Current Visit: Yes Status: Acute Plan to address problem: D5 half-normal saline for now Secondary to persistent vomiting (8) KISHA (acute kidney injury) Current Visit: Yes Status: Acute Plan to address problem: IV fluids for now (9) Metabolic acidosis Current Visit: Yes Status: Acute Plan to address problem: Secondary to persistent vomiting and alcoholic ketoacidosis (10) EtOH dependence Current Visit: Yes Status: Chronic Qualifiers: Substance use status: in withdrawal Plan to address problem: Patient counseled and initiated on CIWA protocol (11) DVT prophylaxis Current Visit: Yes Status: Acute Plan to address problem: On Lovenox and GI prophylaxis
[2018-10-22] MEDS ORDERED: LIBRIUM PO PRN ×2 (18:49)
[2018-10-22] MEDS ORDERED: ATIVAN IV PRN ×2 (18:49)
[2018-10-22] MEDS: MAXIPIME/NS 2 GM/100 ML 2 GM/100 ML BAG IV SCH ×2 (19:00→21:43)
[2018-10-22 19:09] LABS: Hepatitis B Surface Antigen Non-Reactive (Negative); Hepatitis C Virus Antibody Non-Reactive (NonReactive)
[2018-10-22] MEDS ORDERED: XYLOCAINE 1% MPF 5 mL INFILTRATI ONE (19:33)
[2018-10-22] MEDS ORDERED: PERCOCET 5/325 ONE (19:45)
[2018-10-22] MEDS ORDERED: ROCEPHIN IM SCH (19:45)
[2018-10-22] MEDS: NACL 0.9% 1000 ML 1,000 ML IV SCH (21:29)
[2018-10-22] MEDS: PROTONIX IV SCH (21:35)
[2018-10-22] MEDS: SODIUM CHLORIDE FLUSH SYRINGE 10 ML IV SCH (21:36)
[2018-10-23] MEDS: FLAGYL 500 MG/100 ML 500 MG/100 ML BAG IV SCH ×4 (01:34→22:30)
[2018-10-23 04:58] LABS: Basophils % (Auto) 0.2 % (0.0-1.8); Hemoglobin 12.8 gm/dl (10.1-14.3); Lymphocytes % (Auto) 10.3 % (13.4-35.0); Mean Corpuscular HGB Conc 34 % (30-34); Mean Corpuscular Volume 105 fl (79-97); Monocytes # (Auto) 0.7 K/mm3 (0.0-0.8); Platelet Count 149 K/mm3 (140-440); Red Blood Count 3.61 M/mm3 (3.65-5.03); Red Cell Distribution Width 14.5 % (13.2-15.2)
[2018-10-23 05:00] LABS: INR 1.17 (0.87-1.13); Partial Thromboplastin Time 26.5 Sec. (24.2-36.6)
[2018-10-23 05:05] LABS: Alanine Aminotransferase 117 units/L (7-56); Albumin 3.4 g/dL (3.9-5); BUN/Creatinine Ratio 12; Blood Urea Nitrogen 13 mg/dL (7-17); Calcium 7.7 mg/dL (8.4-10.2); Hemolysis Index 8
[2018-10-23] MEDS: MAXIPIME/NS 2 GM/100 ML 2 GM/100 ML BAG IV SCH ×3 (05:49→22:30)
[2018-10-23] MEDS: NACL 0.9% 1000 ML 1,000 ML IV SCH ×2 (06:08→18:20)
[2018-10-23 07:02] LABS: Bilirubin,Urine NEG (Negative); Blood,Urine NEG (Negative); Color,Urine Amber (Yellow); Mucus,Urine 2+ /HPF
[2018-10-23] MEDS: PROTONIX IV SCH ×2 (09:29→22:31)
[2018-10-23] MEDS: SODIUM CHLORIDE FLUSH SYRINGE 10 ML IV SCH ×2 (09:31→22:31)
--- NOTE | 2018-10-23 10:26 | Gastroenterology Consultation ---
History of Present Illness - Reason for Consult Consult date: 10/23/18 acute hepatitis Requesting physician: SELENA CURRY - History of Present Illness Patient is a 30 y/o female with no significant PMH who presented to ED with c/o upper abdominal pain with associated N/V. Upon admission, LFTs were found to be elevated to which GI has been consulted for acute hepatitis. This morning patient was sitting up in bed w/o acute distress. She reports feeling better with prior abdominal pain described as generalized cramping now improved and N/V resolved. Tolerating liquids. Denies fever, CP, SOB, wt loss, jaundice, signs of bleeding, or LGI symptoms such as diarrhea or constipation. No prior hx of liver disease or Fhx of liver disease. No IV drug use or new medications. Admits to daily alcohol use (~2-3 shots of liquor) over the past few years but states that recently her daily intake of alcohol has significantly increased after the passing of her grandmother and uncle. Past History Past Medical History: No medical history Past Surgical History: No surgical history Social history: alcohol abuse. denies: smoking Family history: hypertension Medications and Allergies Allergies Allergy/AdvReac Type Severity Reaction Status Date / Time No Known Allergies Allergy Verified 10/21/18 10:52 Home Medications Medication Instructions Recorded Confirmed Last Taken Type No Known Home Medications [No 10/22/18 10/22/18 Unknown History Reported Home Medications] Active Meds: Active Medications Acetaminophen (Tylenol) 650 mg PO Q4H PRN PRN Reason: Pain MILD(1-3)/Fever >100.5/FRANCO Chlordiazepoxide HCl (Librium) 50 mg PO Q1H PRN PRN Reason: CIWA-Ar 8-15 Chlordiazepoxide HCl (Librium) 100 mg PO Q1H PRN PRN Reason: CIWA-Ar 16-25 Hydromorphone HCl (Dilaudid) 0.5 mg IV Q3H PRN PRN Reason: Pain , Severe (7-10) Cefepime HCl (Maxipime/Ns 2 Gm/100 Ml) 2 gm in 100 mls @ 200 mls/hr IV Q8HR [facility]; Protocol Last Admin: 10/23/18 05:49 Dose: 200 mls/hr Documented by: Metronidazole (Flagyl 500 Mg/100 Ml) 500 mg in 100 mls @ 100 mls/hr IV Q8HR [facility]; Protocol Last Admin: 10/23/18 06:35 Dose: 100 mls/hr Documented by: Sodium Chloride (Nacl 0.9% 1000 Ml) 1,000 mls @ 100 mls/hr IV DIRECT [facility] Stop: 10/24/18 23:59 Last Admin: 10/23/18 06:08 Dose: 100 mls/hr Documented by: Lorazepam (Ativan) 2 mg IV Q1H PRN PRN Reason: CIWA-Ar 8-15 Lorazepam (Ativan) 4 mg IV Q1H PRN PRN Reason: CIWA-Ar 16-25 Ondansetron HCl (Zofran) 4 mg IV Q8H PRN PRN Reason: Nausea And Vomiting Oxycodone/Acetaminophen (Percocet 5/325) 1 tab PO Q6H PRN PRN Reason: Pain, Moderate (4-6) Last Admin: 10/22/18 19:45 Dose: 1 tab Documented by: Pantoprazole Sodium (Protonix) 40 mg IV BID [facility] Last Admin: 10/23/18 09:29 Dose: 40 mg Documented by: Sodium Chloride (Sodium Chloride Flush Syringe 10 Ml) 10 ml IV BID [facility] Last Admin: 10/23/18 09:31 Dose: Not Given Documented by: Sodium Chloride (Sodium Chloride Flush Syringe 10 Ml) 10 ml IV PRN PRN PRN Reason: LINE FLUSH medications reviewed/updated as required Review of Systems - Review of Systems All systems: negative Gastrointestinal: abdominal pain, nausea, vomiting Exam - Constitutional Vital Signs: Temp Pulse Resp BP Pulse Ox 97.7 F 81 16 105/73 98 10/23/18 05:14 10/23/18 05:14 10/23/18 05:14 10/23/18 05:14 10/23/18 05:14 General appearance: no acute distress - EENT Eyes: PERRL, EOM intact ENT: hearing intact - Respiratory Respiratory: bilateral: CTA - Cardiovascular Rhythm: regular - Gastrointestinal General gastrointestinal: Present: soft, non-tender, non-distended, normal bowel sounds - Neurologic Neurological: alert and oriented x3 - Labs CBC & Chem 7: 10/23/18 04:08 10/23/18 04:08 Lab Results: Laboratory Results - last 24 hr 10/22/18 10/22/18 10/22/18 13:37 13:37 15:59 WBC 21.3 H RBC 4.54 Hgb 15.8 H Hct 50.1 H MCV 110 H MCH 35 H MCHC 32 RDW 15.8 H Plt Count 221 Lymph % (Auto) [place] % (Auto) Eos % (Auto) Baso % (Auto) Lymph # [place] # Eos # Baso # Add Manual Diff Complete Total Counted 100 Seg Neutrophils % Sales Compensation Analyst Seg Neuts % (Manual) 96.0 H Band Neutrophils % 0 Lymphocytes % (Manual) 2.0 L Reactive Lymphs % (Man) 0 Monocytes % (Manual) 2.0 Eosinophils % (Manual) 0 Basophils % (Manual) 0 Metamyelocytes % 0 Myelocytes % 0 Promyelocytes % 0 Blast Cells % 0 Nucleated RBC % Not Reportable Seg Neutrophils # Seg Neutrophils # Man 20.4 H Band Neutrophils # 0.0 Lymphocytes # (Manual) 0.4 L Abs React Lymphs (Man) 0.0 Monocytes # (Manual) 0.4 Eosinophils # (Manual) 0.0 Basophils # (Manual) 0.0 Metamyelocytes # 0.0 Myelocytes # 0.0 Promyelocytes # 0.0 Blast Cells # 0.0 WBC Morphology Not Reportable Hypersegmented Neuts Not Reportable Hyposegmented Neuts Not Reportable Hypogranular Neuts Not Reportable Smudge Cells Not Reportable Toxic Granulation Not Reportable Toxic Vacuolation Not Reportable Dohle Bodies Not Reportable Pelger-Huet Anomaly Not Reportable [place] Rods Not Reportable Platelet Estimate Consistent w auto Clumped Platelets Not Reportable Plt Clumps, EDTA Not Reportable Large Platelets Not Reportable Giant Platelets Not Reportable Platelet Satelliting Not Reportable Plt Morphology Comment Not Reportable RBC Morphology Not Reportable Dimorphic RBCs Not Reportable Polychromasia Not Reportable Hypochromasia Not Reportable Poikilocytosis Not Reportable Anisocytosis 1+ Microcytosis Not Reportable Macrocytosis 1+ Spherocytes Not Reportable Pappenheimer Bodies Not Reportable Sickle Cells Not Reportable Target Cells Not Reportable Tear Drop Cells Not Reportable Ovalocytes Not Reportable Helmet Cells Not Reportable [place] Bodies Not Reportable [place] Rings Not Reportable [place] Cells Not Reportable Bite Cells Not Reportable Crenated Cell Not Reportable Elliptocytes Not Reportable Acanthocytes (Spur) Not Reportable Rouleaux Not Reportable Hemoglobin C Crystals Not Reportable Schistocytes Not Reportable Malaria parasites Not Reportable Samy Bodies Not Reportable Hem Pathologist Commnt No PT INR APTT Sodium 146 H Potassium 4.6 Chloride 89.7 L Carbon Dioxide 10 L D Anion Gap 51 BUN 12 Creatinine 1.3 H D Estimated GFR 60 BUN/Creatinine Ratio 9 Glucose 51 L Lactic Acid 18.90 H* Calcium 9.9 Total Bilirubin 0.90 Direct Bilirubin 0.7 H Indirect Bilirubin 0.2 AST 569 H ALT 185 H Alkaline Phosphatase 160 H Total Protein 8.4 H Albumin 4.7 Albumin/Globulin Ratio 1.3 Lipase 11 L Urine Color Urine Turbidity Urine pH Ur Specific [place] Urine Protein Urine Glucose (UA) Urine Ketones Urine Blood Urine Nitrite Urine Bilirubin Urine Urobilinogen Ur Leukocyte Esterase Urine WBC (Auto) Urine RBC (Auto) U Epithel Cells (Auto) Urine Mucus Plasma/Serum Alcohol Hepatitis A IgM Ab Hep Bs Antigen Hep B Core IgM Ab Hepatitis C Antibody 10/22/18 10/22/18 10/22/18 15:59 18:26 18:26 WBC RBC Hgb Hct MCV MCH MCHC RDW Plt Count Lymph % (Auto) [place] % (Auto) Eos % (Auto) Baso % (Auto) Lymph # [place] # Eos # Baso # Add Manual Diff Total Counted Seg Neutrophils % Seg Neuts % (Manual) Band Neutrophils % Lymphocytes % (Manual) Reactive Lymphs % (Man) Monocytes % (Manual) Eosinophils % (Manual) Basophils % (Manual) Metamyelocytes % Myelocytes % Promyelocytes % Blast Cells % Nucleated RBC % Seg Neutrophils # Seg Neutrophils # Man Band Neutrophils # Lymphocytes # (Manual) Abs React Lymphs (Man) Monocytes # (Manual) Eosinophils # (Manual) Basophils # (Manual) Metamyelocytes # Myelocytes # Promyelocytes # Blast Cells # WBC Morphology Hypersegmented Neuts Hyposegmented Neuts Hypogranular Neuts Smudge Cells Toxic Granulation Toxic Vacuolation Dohle Bodies Pelger-Huet Anomaly [place] Rods Platelet Estimate Clumped Platelets Plt Clumps, EDTA Large Platelets Giant Platelets Platelet Satelliting Plt Morphology Comment RBC Morphology Dimorphic RBCs Polychromasia Hypochromasia Poikilocytosis Anisocytosis Microcytosis Macrocytosis Spherocytes Pappenheimer Bodies Sickle Cells Target Cells Tear Drop Cells Ovalocytes Helmet Cells [place] Bodies [place] Cells Bite Cells Crenated Cell Elliptocytes Acanthocytes (Spur) Rouleaux Hemoglobin C Crystals Schistocytes Malaria parasites Samy Bodies Hem Pathologist Commnt PT INR APTT Sodium Potassium Chloride Carbon Dioxide Anion Gap BUN Creatinine Estimated GFR BUN/Creatinine Ratio Glucose Lactic Acid 12.70 H* Calcium Total Bilirubin Direct Bilirubin Indirect Bilirubin AST ALT Alkaline Phosphatase Total Protein Albumin Albumin/Globulin Ratio Lipase Urine Color Urine Turbidity Urine pH Ur Specific [place] Urine Protein Urine Glucose (UA) Urine Ketones Urine Blood Urine Nitrite Urine Bilirubin Urine Urobilinogen Ur Leukocyte Esterase Urine WBC (Auto) Urine RBC (Auto) U Epithel Cells (Auto) Urine Mucus Plasma/Serum Alcohol < 0.01 Hepatitis A IgM Ab Non-reactive Hep Bs Antigen Non-reactive Hep B Core IgM Ab Non-reactive Hepatitis C Antibody Non-reactive 10/22/18 10/22/18 10/23/18 21:20 23:10 04:08 WBC 10.0 RBC 3.61 L Hgb 12.8 D Hct 38.0 D MCV 105 H MCH 35 H MCHC 34 RDW 14.5 Plt Count 149 Lymph % (Auto) 10.3 L [place] % (Auto) 7.0 Eos % (Auto) 0.0 Baso % (Auto) 0.2 Lymph # 1.0 L [place] # 0.7 Eos # 0.0 Baso # 0.0 Add Manual Diff Total Counted Seg Neutrophils % 82.5 H Seg Neuts % (Manual) Band Neutrophils % Lymphocytes % (Manual) Reactive Lymphs % (Man) Monocytes % (Manual) Eosinophils % (Manual) Basophils % (Manual) Metamyelocytes % Myelocytes % Promyelocytes % Blast Cells % Nucleated RBC % Seg Neutrophils # 8.2 H Seg Neutrophils # Man Band Neutrophils # Lymphocytes # (Manual) Abs React Lymphs (Man) Monocytes # (Manual) Eosinophils # (Manual) Basophils # (Manual) Metamyelocytes # Myelocytes # Promyelocytes # Blast Cells # WBC Morphology Hypersegmented Neuts Hyposegmented Neuts Hypogranular Neuts Smudge Cells Toxic Granulation Toxic Vacuolation Dohle Bodies Pelger-Huet Anomaly [place] Rods Platelet Estimate Clumped Platelets Plt Clumps, EDTA Large Platelets Giant Platelets Platelet Satelliting Plt Morphology Comment RBC Morphology Dimorphic RBCs Polychromasia Hypochromasia Poikilocytosis Anisocytosis Microcytosis Macrocytosis Spherocytes Pappenheimer Bodies Sickle Cells Target Cells Tear Drop Cells Ovalocytes Helmet Cells [place] Bodies [place] Cells Bite Cells Crenated Cell Elliptocytes Acanthocytes (Spur) Rouleaux Hemoglobin C Crystals Schistocytes Malaria parasites Samy Bodies Hem Pathologist Commnt PT INR APTT Sodium Potassium Chloride Carbon Dioxide Anion Gap BUN Creatinine Estimated GFR BUN/Creatinine Ratio Glucose Lactic Acid 6.90 H* 4.20 H* Calcium Total Bilirubin Direct Bilirubin Indirect Bilirubin AST ALT Alkaline Phosphatase Total Protein Albumin Albumin/Globulin Ratio Lipase Urine Color Urine Turbidity Urine pH Ur Specific [place] Urine Protein Urine Glucose (UA) Urine Ketones Urine Blood Urine Nitrite Urine Bilirubin Urine Urobilinogen Ur Leukocyte Esterase Urine WBC (Auto) Urine RBC (Auto) U Epithel Cells (Auto) Urine Mucus Plasma/Serum Alcohol Hepatitis A IgM Ab Hep Bs Antigen Hep B Core IgM Ab Hepatitis C Antibody 10/23/18 10/23/18 10/23/18 04:08 04:08 04:08 WBC RBC Hgb Hct MCV MCH MCHC RDW Plt Count Lymph % (Auto) [place] % (Auto) Eos % (Auto) Baso % (Auto) Lymph # [place] # Eos # Baso # Add Manual Diff Total Counted Seg Neutrophils % Seg Neuts % (Manual) Band Neutrophils % Lymphocytes % (Manual) Reactive Lymphs % (Man) Monocytes % (Manual) Eosinophils % (Manual) Basophils % (Manual) Metamyelocytes % Myelocytes % Promyelocytes % Blast Cells % Nucleated RBC % Seg Neutrophils # Seg Neutrophils # Man Band Neutrophils # Lymphocytes # (Manual) Abs React Lymphs (Man) Monocytes # (Manual) Eosinophils # (Manual) Basophils # (Manual) Metamyelocytes # Myelocytes # Promyelocytes # Blast Cells # WBC Morphology Hypersegmented Neuts Hyposegmented Neuts Hypogranular Neuts Smudge Cells Toxic Granulation Toxic Vacuolation Dohle Bodies Pelger-Huet Anomaly Ald[place] Rods Platelet Estimate Clumped Platelets Plt Clumps, EDTA Large Platelets Giant Platelets Platelet Satelliting Plt Morphology Comment RBC Morphology Dimorphic RBCs Polychromasia Hypochromasia Poikilocytosis Anisocytosis Microcytosis Macrocytosis Spherocytes Pappenheimer Bodies Sickle Cells Target Cells Tear Drop Cells Ovalocytes Helmet Cells [place] Bodies [place] Rings [place] Cells Bite Cells Crenated Cell Elliptocytes Acanthocytes (Spur) Rouleaux Hemoglobin C Crystals Schistocytes Malaria parasites Samy Bodies Hem Pathologist Commnt PT 15.6 H INR 1.17 H APTT 26.5 Sodium 137 D Potassium 4.7 Chloride 99.5 Carbon Dioxide 23 D Anion Gap 19 BUN 13 Creatinine 1.1 Estimated GFR > 60 BUN/Creatinine Ratio 12 Glucose 108 H Lactic Acid 2.50 H* Calcium 7.7 L D Total Bilirubin 0.70 Direct Bilirubin Indirect Bilirubin AST 281 H ALT 117 H Alkaline Phosphatase 99 Total Protein 5.9 L D Albumin 3.4 L Albumin/Globulin Ratio 1.4 Lipase Urine Color Urine Turbidity Urine pH Ur Specific [place] Urine Protein Urine Glucose (UA) Urine Ketones Urine Blood Urine Nitrite Urine Bilirubin Urine Urobilinogen Ur Leukocyte Esterase Urine WBC (Auto) Urine RBC (Auto) U Epithel Cells (Auto) Urine Mucus Plasma/Serum Alcohol Hepatitis A IgM Ab Hep Bs Antigen Hep B Core IgM Ab Hepatitis C Antibody 10/23/18 10/23/18 05:45 06:42 WBC RBC Hgb Hct MCV MCH MCHC RDW Plt Count Lymph % (Auto) [place] % (Auto) Eos % (Auto) Baso % (Auto) Lymph # [place] # Eos # Baso # Add Manual Diff Total Counted Seg Neutrophils % Seg Neuts % (Manual) Band Neutrophils % Lymphocytes % (Manual) Reactive Lymphs % (Man) Monocytes % (Manual) Eosinophils % (Manual) Basophils % (Manual) Metamyelocytes % Myelocytes % Promyelocytes % Blast Cells % Nucleated RBC % Seg Neutrophils # Seg Neutrophils # Man Band Neutrophils # Lymphocytes # (Manual) Abs React Lymphs (Man) Monocytes # (Manual) Eosinophils # (Manual) Basophils # (Manual) Metamyelocytes # Myelocytes # Promyelocytes # Blast Cells # WBC Morphology Hypersegmented Neuts Hyposegmented Neuts Hypogranular Neuts Smudge Cells Toxic Granulation Toxic Vacuolation Dohle Bodies Pelger-Huet Anomaly Ald[place] Rods Platelet Estimate Clumped Platelets Plt Clumps, EDTA Large Platelets Giant Platelets Platelet Satelliting Plt Morphology Comment RBC Morphology Dimorphic RBCs Polychromasia Hypochromasia Poikilocytosis Anisocytosis Microcytosis Macrocytosis Spherocytes Pappenheimer Bodies Sickle Cells Target Cells Tear Drop Cells Ovalocytes Helmet Cells [place] Bodies [place] Rings [place] Cells Bite Cells Crenated Cell Elliptocytes Acanthocytes (Spur) Rouleaux Hemoglobin C Crystals Schistocytes Malaria parasites Samy Bodies Hem Pathologist Commnt PT INR APTT Sodium Potassium Chloride Carbon Dioxide Anion Gap BUN Creatinine Estimated GFR BUN/Creatinine Ratio Glucose Lactic Acid 1.80 Calcium Total Bilirubin Direct Bilirubin Indirect Bilirubin AST ALT Alkaline Phosphatase Total Protein Albumin Albumin/Globulin Ratio Lipase Urine Color [place] Urine Turbidity Slightly-cloudy Urine pH 5.0 Ur Specific [place] 1.039 H Urine Protein 30 mg/dl Urine Glucose (UA) Neg Urine Ketones Tr Urine Blood Neg Urine Nitrite Neg Urine Bilirubin Neg Urine Urobilinogen 2.0 Ur Leukocyte Esterase Mod Urine WBC (Auto) 26.0 H Urine RBC (Auto) 2.0 U Epithel Cells (Auto) 15.0 H Urine Mucus 2+ Plasma/Serum Alcohol Hepatitis A IgM Ab Hep Bs Antigen Hep B Core IgM Ab Hepatitis C Antibody Assessment and Plan 1.elevated LFTs 2.ETOH abuse -afebrile -WBC 10.0-trended down -H/H WNL -lipase WNL -plt 149, INR 1.17 -LFTs trending down (T.zahida 0.70, AST 281, ALT 117, alk phos 99) -hepatitis panel negative -abd U/S showed coarsened echotexture of the liver with increased echogenicity c/w hepatocellular disease -etiology-most likely 2/2 acute alcoholic hepatitis (underlying cirrhosis not completely excluded) -clinically, patient is stable. Reports feeling better with abd pain improved and N/V resolved. Tolerating liquids. No signs of bleeding. No encephalopathy noted upon exam. -DF <32 (17)- no recommendations for glucocorticoids at this time -advance diet as tolerated -continue to trend labs and supportive care (PPI, empiric antibiotics, antiemetics, pain control, etc.) -alcohol cessation discussed/encouraged with patient-monitor for signs of withdrawal -will follow
--- NOTE | 2018-10-23 13:29 | Progress Note ---
Assessment and Plan Assessment and plan: Alcoholic hepatitis - acute hepatitis panel is negative - AST and ALT trending down - Continue to monitor - Consulted about cessation of alcohol UTI -Patient is on cephalosporin Leukocytosis - Resolved, likely reactive Lactic acidosis - Resolved - Likely due to alcohol abuse Alcohol abuse - Counseled about cessation of alcohol DVT prophylaxis Disposition; possible discharge tomorrow History Interval history: Patient was seen and divided this morning, patient denied abdominal pain, nausea and vomiting. Hospitalist Physical - Physical exam Narrative exam: Not in cardiopulmonary distress. The patient appeared well nourished and normally developed. Vital signs as documented. Head exam is unremarkable. No scleral icterus . Neck is without jugular venous distension, thyromegaly, or carotid bruits. Lungs are clear to auscultation. Cardiac exam reveals regular rate and Rhythm. Abdominal exam reveals normal bowel sounds. Extremities are nonedematous and both femoral and pedal pulses are normal. 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 No focal weakness. - Constitutional Vitals: Temp Pulse Resp BP Pulse Ox 98.5 F 79 18 113/83 99 10/23/18 11:46 10/23/18 11:46 10/23/18 11:46 10/23/18 11:46 10/23/18 11:46 General appearance: Present: mild distress, well-nourished Results - Labs CBC & Chem 7: 10/23/18 04:08 10/23/18 04:08 Labs: Laboratory Last Values WBC 10.0 K/mm3 (4.5-11.0) 10/23/18 04:08 RBC 3.61 M/mm3 (3.65-5.03) L 10/23/18 04:08 Hgb 12.8 gm/dl (10.1-14.3) D 10/23/18 04:08 Hct 38.0 % (30.3-42.9) D 10/23/18 04:08 MCV 105 fl (79-97) H 10/23/18 04:08 MCH 35 pg (28-32) H 10/23/18 04:08 MCHC 34 % (30-34) 10/23/18 04:08 RDW 14.5 % (13.2-15.2) 10/23/18 04:08 Plt Count 149 K/mm3 (140-440) 10/23/18 04:08 Lymph % (Auto) 10.3 % (13.4-35.0) L 10/23/18 04:08 [place] % (Auto) 7.0 % (0.0-7.3) 10/23/18 04:08 Eos % (Auto) 0.0 % (0.0-4.3) 10/23/18 04:08 Baso % (Auto) 0.2 % (0.0-1.8) 10/23/18 04:08 Lymph # 1.0 K/mm3 (1.2-5.4) L 10/23/18 04:08 [place] # 0.7 K/mm3 (0.0-0.8) 10/23/18 04:08 Eos # 0.0 K/mm3 (0.0-0.4) 10/23/18 04:08 Baso # 0.0 K/mm3 (0.0-0.1) 10/23/18 04:08 Add Manual Diff Complete 10/22/18 13:37 Total Counted 100 10/22/18 13:37 Seg Neutrophils % 82.5 % (40.0-70.0) H 10/23/18 04:08 Seg Neuts % (Manual) 96.0 % (40.0-70.0) H 10/22/18 13:37 Band Neutrophils % 0 % 10/22/18 13:37 Lymphocytes % (Manual) 2.0 % (13.4-35.0) L 10/22/18 13:37 Reactive Lymphs % (Man) 0 % 10/22/18 13:37 Monocytes % (Manual) 2.0 % (0.0-7.3) 10/22/18 13:37 Eosinophils % (Manual) 0 % (0.0-4.3) 10/22/18 13:37 Basophils % (Manual) 0 % (0.0-1.8) 10/22/18 13:37 Metamyelocytes % 0 % 10/22/18 13:37 Myelocytes % 0 % 10/22/18 13:37 Promyelocytes % 0 % 10/22/18 13:37 Blast Cells % 0 % 10/22/18 13:37 Nucleated RBC % Not Reportable 10/22/18 13:37 Seg Neutrophils # 8.2 K/mm3 (1.8-7.7) H 10/23/18 04:08 Seg Neutrophils # Man 20.4 K/mm3 (1.8-7.7) H 10/22/18 13:37 Band Neutrophils # 0.0 K/mm3 10/22/18 13:37 Lymphocytes # (Manual) 0.4 K/mm3 (1.2-5.4) L 10/22/18 13:37 Abs React Lymphs (Man) 0.0 K/mm3 10/22/18 13:37 Monocytes # (Manual) 0.4 K/mm3 (0.0-0.8) 10/22/18 13:37 Eosinophils # (Manual) 0.0 K/mm3 (0.0-0.4) 10/22/18 13:37 Basophils # (Manual) 0.0 K/mm3 (0.0-0.1) 10/22/18 13:37 Metamyelocytes # 0.0 K/mm3 10/22/18 13:37 Myelocytes # 0.0 K/mm3 10/22/18 13:37 Promyelocytes # 0.0 K/mm3 10/22/18 13:37 Blast Cells # 0.0 K/mm3 10/22/18 13:37 WBC Morphology Not Reportable 10/22/18 13:37 Hypersegmented Neuts Not Reportable 10/22/18 13:37 Hyposegmented Neuts Not Reportable 10/22/18 13:37 Hypogranular Neuts Not Reportable 10/22/18 13:37 Smudge Cells Not Reportable 10/22/18 13:37 Toxic Granulation Not Reportable 10/22/18 13:37 Toxic Vacuolation Not Reportable 10/22/18 13:37 Dohle Bodies Not Reportable 10/22/18 13:37 Pelger-Huet Anomaly Not Reportable 10/22/18 13:37 Aldair Rods Not Reportable 10/22/18 13:37 Platelet Estimate Consistent w auto 10/22/18 13:37 Clumped Platelets Not Reportable 10/22/18 13:37 Plt Clumps, EDTA Not Reportable 10/22/18 13:37 Large Platelets Not Reportable 10/22/18 13:37 Giant Platelets Not Reportable 10/22/18 13:37 Platelet Satelliting Not Reportable 10/22/18 13:37 Plt Morphology Comment Not Reportable 10/22/18 13:37 RBC Morphology Not Reportable 10/22/18 13:37 Dimorphic RBCs Not Reportable 10/22/18 13:37 Polychromasia Not Reportable 10/22/18 13:37 Hypochromasia Not Reportable 10/22/18 13:37 Poikilocytosis Not Reportable 10/22/18 13:37 Anisocytosis 1+ 10/22/18 13:37 Microcytosis Not Reportable 10/22/18 13:37 Macrocytosis 1+ 10/22/18 13:37 Spherocytes Not Reportable 10/22/18 13:37 Pappenheimer Bodies Not Reportable 10/22/18 13:37 Sickle Cells Not Reportable 10/22/18 13:37 Target Cells Not Reportable 10/22/18 13:37 Tear Drop Cells Not Reportable 10/22/18 13:37 Ovalocytes Not Reportable 10/22/18 13:37 Helmet Cells Not Reportable 10/22/18 13:37 [place] Bodies Not Reportable 10/22/18 13:37 [place]ow Rings Not Reportable 10/22/18 13:37 Mari Cells Not Reportable 10/22/18 13:37 Bite Cells Not Reportable 10/22/18 13:37 Crenated Cell Not Reportable 10/22/18 13:37 Elliptocytes Not Reportable 10/22/18 13:37 Acanthocytes (Spur) Not Reportable 10/22/18 13:37 Rouleaux Not Reportable 10/22/18 13:37 Hemoglobin C Crystals Not Reportable 10/22/18 13:37 Schistocytes Not Reportable 10/22/18 13:37 Malaria parasites Not Reportable 10/22/18 13:37 Samy Bodies Not Reportable 10/22/18 13:37 Hem Pathologist Commnt No 10/22/18 13:37 PT 15.6 Sec. (12.2-14.9) H 10/23/18 04:08 INR 1.17 (0.87-1.13) H 10/23/18 04:08 APTT 26.5 Sec. (24.2-36.6) 10/23/18 04:08 Sodium 137 mmol/L (137-145) D 10/23/18 04:08 Potassium 4.7 mmol/L (3.6-5.0) 10/23/18 04:08 Chloride 99.5 mmol/L (98-107) 10/23/18 04:08 Carbon Dioxide 23 mmol/L (22-30) D 10/23/18 04:08 Anion Gap 19 mmol/L 10/23/18 04:08 BUN 13 mg/dL (7-17) 10/23/18 04:08 Creatinine 1.1 mg/dL (0.7-1.2) 10/23/18 04:08 Estimated GFR > 60 ml/min 10/23/18 04:08 BUN/Creatinine Ratio 12 % 10/23/18 04:08 Glucose 108 mg/dL (65-100) H 10/23/18 04:08 Lactic Acid 1.80 mmol/L (0.7-2.0) 10/23/18 06:42 Calcium 7.7 mg/dL (8.4-10.2) L D 10/23/18 04:08 Total Bilirubin 0.70 mg/dL (0.1-1.2) 10/23/18 04:08 Direct Bilirubin 0.7 mg/dL (0-0.2) H 10/22/18 13:37 Indirect Bilirubin 0.2 mg/dL 10/22/18 13:37 AST 281 units/L (5-40) H 10/23/18 04:08 ALT 117 units/L (7-56) H 10/23/18 04:08 Alkaline Phosphatase 99 units/L (35-129) 10/23/18 04:08 Total Protein 5.9 g/dL (6.3-8.2) L D 10/23/18 04:08 Albumin 3.4 g/dL (3.9-5) L 10/23/18 04:08 Albumin/Globulin Ratio 1.4 % 10/23/18 04:08 Lipase 11 units/L (13-60) L 10/22/18 13:37 Urine Color Summer (Yellow) 10/23/18 05:45 Urine Turbidity Slightly-cloudy (Clear) 10/23/18 05:45 Urine pH 5.0 (5.0-7.0) 10/23/18 05:45 Ur Specific [place] 1.039 (1.003-1.030) H 10/23/18 05:45 Urine Protein 30 mg/dl mg/dL (Negative) 10/23/18 05:45 Urine Glucose (UA) Neg mg/dL (Negative) 10/23/18 05:45 Urine Ketones Tr mg/dL (Negative) 10/23/18 05:45 Urine Blood Neg (Negative) 10/23/18 05:45 Urine Nitrite Neg (Negative) 10/23/18 05:45 Urine Bilirubin Neg (Negative) 10/23/18 05:45 Urine Urobilinogen 2.0 mg/dL (<2.0) 10/23/18 05:45 Ur Leukocyte Esterase Mod (Negative) 10/23/18 05:45 Urine WBC (Auto) 26.0 /HPF (0.0-6.0) H 10/23/18 05:45 Urine RBC (Auto) 2.0 /HPF (0.0-6.0) 10/23/18 05:45 U Epithel Cells (Auto) 15.0 /HPF (0-13.0) H 10/23/18 05:45 Urine Mucus 2+ /HPF 10/23/18 05:45 Plasma/Serum Alcohol < 0.01 % (0-0.07) 10/22/18 15:59 Hepatitis A IgM Ab Non-reactive (NonReactive) 10/22/18 18:26 Hep Bs Antigen Non-reactive (Negative) 10/22/18 18:26 Hep B Core IgM Ab Non-reactive (NonReactive) 10/22/18 18:26 Hepatitis C Antibody Non-reactive (NonReactive) 10/22/18 18:26 Active Medications - Current Medications Current Medications: Generic Name Dose Route Start Last Admin Trade Name Freq PRN Reason Stop Dose Admin Acetaminophen 650 mg 10/22/18 18:43 Tylenol PO Q4H PRN Pain MILD(1-3)/Fever >100.5/FRANCO Chlordiazepoxide HCl 50 mg 10/22/18 18:49 Librium PO Q1H PRN CIWA-Ar 8-15 Chlordiazepoxide HCl 100 mg 10/22/18 18:49 Librium PO Q1H PRN CIWA-Ar 16-25 Hydromorphone HCl 0.5 mg 10/22/18 18:43 Dilaudid IV Q3H PRN Pain , Severe (7-10) Cefepime HCl 2 gm in 100 mls @ 200 mls/hr 10/22/18 16:00 10/23/18 05:49 Maxipime/Ns 2 Gm/100 Ml IV 200 mls/hr Q8HR PARI Administration Protocol Metronidazole 500 mg in 100 mls @ 100 mls/hr 10/22/18 17:00 10/23/18 06:35 Flagyl 500 Mg/100 Ml IV 100 mls/hr Q8HR PARI Administration Protocol Sodium Chloride 1,000 mls @ 100 mls/hr 10/22/18 18:00 10/23/18 06:08 Nacl 0.9% 1000 Ml IV 10/24/18 23:59 100 mls/hr DIRECT PARI Administration Lorazepam 2 mg 10/22/18 18:49 Ativan IV Q1H PRN CIWA-Ar 8-15 Lorazepam 4 mg 10/22/18 18:49 Ativan IV Q1H PRN CIWA-Ar 16-25 Ondansetron HCl 4 mg 10/22/18 18:43 Zofran IV Q8H PRN Nausea And Vomiting Oxycodone/Acetaminophen 1 tab 10/22/18 18:43 10/22/18 19:45 Percocet 5/325 PO 1 tab Q6H PRN Administration Pain, Moderate (4-6) Pantoprazole Sodium 40 mg 10/22/18 22:00 10/23/18 09:29 Protonix IV 40 mg BID PARI Administration Sodium Chloride 10 ml 10/22/18 22:00 10/23/18 09:31 Sodium Chloride Flush Syringe 10 Ml IV Not Given BID PARI Sodium Chloride 10 ml 10/22/18 18:43 Sodium Chloride Flush Syringe 10 Ml IV PRN PRN LINE FLUSH
[2018-10-24] MEDS: FLAGYL 500 MG/100 ML 500 MG/100 ML BAG IV SCH (05:54)
[2018-10-24] MEDS: MAXIPIME/NS 2 GM/100 ML 2 GM/100 ML BAG IV SCH (05:55)
[2018-10-24 07:35] VITALS: BP 124/91
[2018-10-24] MEDS: NACL 0.9% 1000 ML 1,000 ML IV SCH (08:14)
[2018-10-24 08:15] LABS: Alanine Aminotransferase 76 units/L (7-56); Albumin 3.2 g/dL (3.9-5); BUN/Creatinine Ratio 17; Blood Urea Nitrogen 12 mg/dL (7-17); Calcium 8.1 mg/dL (8.4-10.2); Hemolysis Index 12
--- NOTE | 2018-10-24 09:18 | Discharge Summary ---
Providers - Providers Date of Admission: 10/22/18 17:58 Attending physician: ROXANNA SHERIDAN MD 10/22/18 18:43 Consult to Physician [CONS] Routine Comment: Consulting Provider: MELO GARBER Physician Instructions: Reason For Exam: acute hepatitis [facility] Reason for admission: alcoholic hepatitis, Dehydration, lactic acidosis Condition: Stable Pertinent studies: Abdominal ultrasound IMPRESSION: 1. Coarsened echotexture of the liver with increased echogenicity. This can be seen with hepatocellular disease. Correlation with clinical history and physical exam will be helpful. If further imaging is required, CT or MRI may be helpful. 2. The pancreas is not well visualized due to artifact. 3. Otherwise unremarkable right upper quadrant abdomen ultrasound. Hospital course: 30-year-old -[place] female with past medical history significant for alcohol abuse comes in for abdominal pain. Patient was in the emergency room last night and was evaluated and sent home. Patient refused abdominal ultrasound.. After going home patient started having persistent nausea vomiting since 1 AM. Not able to hold anything. No diarrhea. Abdominal pain is about 6-7 on a scale of 1-10. Sharp in nature and intermittent. Patient feels weak and dehydrated secondary to wanting. No fever or chills. Patient drinks about 2 to 3 shots of tequila every day for the past 5 years. Patient wants to quit alcohol but unable to do. Patient feels that this is a precipitating factor and may stop alcohol from now on. patient was admitted to the floor for alcoholic hepatitis, lactic acidosis, leukocytosis, UTI and was treated with IV antibiotics, IV fluids and pain medications. Lactic acidosis resolved leukocytosis resolved and vision symptoms resolved. GI consult appreciated. Patient was extensively counseled about cessation of alcohol discharged home. Patient is advised to have f/u with PCP. Patient was hemodynamically stable at the time of discharge. Disposition: -01 TO HOME OR SELFCARE Time spent for discharge: 32 minutes - Discharge Diagnoses (1) UTI (urinary tract infection) Status: Acute (2) KISHA (acute kidney injury) Status: Acute (3) Acute hepatitis Status: Acute (4) Acute hypernatremia Status: Acute (5) Dehydration Status: Acute (6) Elevated lactic acid level Status: Acute (7) Leukocytosis Status: Acute (8) Metabolic acidosis Status: Acute (9) SIRS (systemic inflammatory response syndrome) Status: Acute (10) EtOH dependence Status: Chronic Qualifiers: Substance use status: in withdrawal Core Measure Documentation - Palliative Care Palliative Care/ Comfort Measures: Not Applicable - Core Measures Any of the following diagnoses?: none Exam - Physical Exam Narrative exam: Not in cardiopulmonary distress. The patient appeared well nourished and normally developed. Vital signs as documented. Head exam is unremarkable. No scleral icterus . Neck is without jugular venous distension, thyromegaly, or carotid bruits. Lungs are clear to auscultation. Cardiac exam reveals regular rate and Rhythm. Abdominal exam reveals normal bowel sounds. Extremities are nonedematous and both femoral and pedal pulses are normal. 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 No focal weakness. - Constitutional Vitals: Temp Pulse Resp BP Pulse Ox 97.8 F 72 15 124/91 97 10/24/18 06:52 10/24/18 06:52 10/24/18 06:52 10/24/18 06:52 10/24/18 06:52 Plan Activity: no restrictions Weight Bearing Status: Full Weight Bearing Follow up with: LUIS SHARIF MD [Primary Care Provider] - 3-5 Days Forms: Work/School Release Form Prescriptions: cephALEXin [Keflex] 500 mg PO Q8HR #9 cap Pantoprazole [Protonix TAB] 40 mg PO QDAY #14 tablet
[2018-10-24] MEDS: SODIUM CHLORIDE FLUSH SYRINGE 10 ML IV SCH (09:59)
[2018-10-24] MEDS ORDERED: PROTONIX PO SCH (10:00)
== END 2018-10-24 10:10 | disposition home or self-care (01) | DRG 433 ==
LOC: ED 13:08 → 3A 17:58
PROVIDERS: ADMIT Internal Medicine; ATTEND Internal Medicine
DX: K70.10 Alcoholic hepatitis without ascites (principal); E87.0 Hyperosmolality and hypernatremia; N17.9 Acute kidney failure, unspecified; F10.239 Alcohol dependence with withdrawal, unspecified; N39.0 Urinary tract infection, site not specified; R65.10 Systemic inflammatory response syndrome (SIRS) of non-infectious origin without acute organ dysfunction; E87.2 Acidosis; E86.0 Dehydration; D72.829 Elevated white blood cell count, unspecified; Z82.49 Family history of ischemic heart disease and other diseases of the circulatory system; Z71.41 Alcohol abuse counseling and surveillance of alcoholic
CPT/HCPCS: 36415; 76705; 80048; 80053; 80074; 80076; 80320; 81001; 82140; 83690; 85007; 85025; 85610; 85730; 87040; 96361; 96374; 96375; G0378; C9113; G0480; J0692; J2060; J2405; J7030

== ENCOUNTER 2022-01-05 19:33 | Emergency (ER) | payer SELFPAY ==
[2022-01-05 22:02] VITALS: BP 107/73
== END 2022-01-05 23:30 | disposition left against medical advice (07) ==
LOC: ED 19:33
DX: E86.0 Dehydration (principal); Z53.21 Procedure and treatment not carried out due to patient leaving prior to being seen by health care provider